=== PATIENT | male | born 1990 | race Caucasian/White ===

== ENCOUNTER 2025-03-19 03:40 | Emergency (ER) | payer OTHER ==
[2025-03-19] MEDS: Ketorolac 30 MG/ML SDV IM ONE (04:20)
[2025-03-19] MEDS: Acetaminophen/oxyCODONE 325-5 MG Tab PO STA ×2 (04:20→06:00)
[2025-03-19] MEDS: Lidocaine 2% HCl 6 ML Jel MM ONE (04:21)
[2025-03-19] MEDS: Diphtheria,Pertussis(Acell),Tetanus Vaccine 0.5 ML Syringe IM ONE (04:22)
== END 2025-03-19 05:45 | disposition home or self-care (01) ==
LOC: FB.ED 03:40 → SUPCPDRO 03:40 → FB.ED 05:45
DX: T23.002A Burn of unspecified degree of left hand, unspecified site, initial encounter (principal); T22.021A Burn of unspecified degree of right elbow, initial encounter; T21.05XA Burn of unspecified degree of buttock, initial encounter; Z79.899 Other long term (current) drug therapy
CPT/HCPCS: 90471; 90715; 96372; 99283; 99283-25; A9270-GY; J1885